=== PATIENT | female | born 1960 | race Asian ===

== ENCOUNTER 2024-05-14 18:35 | Emergency (ER) | payer BC ==
[~2024-05-14] VITALS: Ht 160 cm; Wt 54.5 kg
[~2024-05-14 18:35] MED LIST: AMIT25TA34 PO; ATEN-187 PO; ESCI-8 PO; RIZA10TA42 PO; TOPI-258 PO
[2024-05-14 18:40] VITALS: TEMP 97.9
[2024-05-14] MEDS: ONDANSETRON HCL 4 MG/2 ML VIAL IVP ONE (18:53)
[2024-05-14] MEDS: HYDROmorphone HCL 2 MG/ML SYRINGE IVP ONE (18:53)
[2024-05-14] MEDS: DiphenhydrAMINE HCL 50 MG/ML VIAL IVP ONE (18:53)
[2024-05-14] MEDS: SODIUM CHLORIDE 0.9% 1,000 ML IV ONE (18:53)
[2024-05-14] MEDS: METOCLOPRAMIDE HCL 5 MG/ML 2 ML VIAL IVP ONE (18:54)
[2024-05-14 19:33] VITALS: BP 130/72; PULSE 77; RESP 18; O2SAT 98
[2024-05-14 19:36] LABS: BASOPHILS % (AUTO) 0.5 % (0.0-2.0); EOSINOPHILS % (AUTO) 0.2 % (1.0-6.0); HEMATOCRIT 38.6 % (36-46); HEMOGLOBIN 13.3 g/dL (12.0-16.0); LYMPHOCYTES # (AUTO) 0.7 K/uL (1.0-4.8); LYMPHOCYTES % (AUTO) 7.4 % (22.0-44.0); MEAN CORPUSCULAR HEMOGLOBIN 31.4 pg (26.0-34.0); MEAN CORPUSCULAR HGB CONC 34.4 G/dL (31.0-37.0); MEAN CORPUSCULAR VOLUME 91 fL (80-100); MONOCYTES # (AUTO) 0.5 K/uL (0.1-1.0); MONOCYTES % (AUTO) 4.8 % (2.0-9.0); NEUTROPHILS # (AUTO) 8.8 K/uL (1.8-7.7); PLATELET COUNT (AUTO) 303 K/uL (150-450); RED BLOOD CELL COUNT(AUTO) 4.23 MIL/uL (4.00-5.20); RED CELL DISTRIBUTION WIDTH 13.5 % (11.5-14.5); WHITE BLOOD COUNT (AUTO) 10.1 K/uL (4.5-11.0)
[2024-05-14 19:38] LABS: NEUTROPHILS % (AUTO) 87.1 % (40.0-70.0)
[2024-05-14 19:46] LABS: ANION GAP 9 mmol/L (8-16); CARBON DIOXIDE 28 mmol/L (22-29); CHLORIDE 100 mmol/L (98-107); CREATININE 0.68 mg/dL (0.60-1.30); GLOMERULAR FILTR. RATE CALC > 60 mL/min (>60); GLUCOSE,RANDOM 137 mg/dL (70-110); POTASSIUM 3.1 mmol/L (3.5-5.1); SODIUM SERUM 136 mmol/L (136-145); UREA NITROGEN, BLOOD 9 mg/dL (7-18)
[2024-05-14 19:50] LABS: ALANINE AMINOTRANSFERASE 35 U/L (12-78); ALBUMIN 3.4 g/dL (3.4-5.0); ALKALINE PHOSPHATASE 136 U/L (46-116); ASPARTATE AMINOTRANSFERASE 20 U/L (15-37); BILIRUBIN,TOTAL 0.4 mg/dL (0.1-1.0); TOTAL PROTEIN, SERUM 7.9 g/dL (6.4-8.2)
[2024-05-14] MEDS: POTASSIUM CHLORIDE 20 MEQ ER TABLET PO ONE (19:52)
== END 2024-05-14 20:03 | disposition home or self-care (01) ==
LOC: EMS 18:35
DX: G43.909 Migraine, unspecified, not intractable, without status migrainosus (principal); E87.6 Hypokalemia; Z88.2 Allergy status to sulfonamides; Z79.899 Other long term (current) drug therapy
CPT/HCPCS: 99284; 96374; 96375; 96361; 80053; 85025; 36415; J1171; J1200; J2765; J2405; J7030